=== PATIENT | male | born 1945 | race African-American/Black ===

== ENCOUNTER 2019-01-28 17:22 | Inpatient (IN) | payer MEDICARE ==
[2019-01-28 18:04] LABS: ABS Basophils 0.1 10^3/ul (0-0.2); ABS Eosinophils 0.1 10^3/ul (0-0.6); ABS Lymphocytes 1.6 10^3/ul (1.0-4.8); ABS Monocytes 0.8 10^3/ul (0-0.8); ABS Neutrophils 3.4 10^3/ul (1.5-7.7); Eosinophil % 1.2 %; Hematocrit 48 % (42-52); Hemoglobin 15.5 g/dL (14.0-18.0); Lymphocyte % 27.4 %; Mean Corpuscular HGB Conc 33 g/dL (31-36); Mean Corpuscular Hemoglobin 28 pg (27-31); Mean Corpuscular Volume 86 fL (80-94); Mean Platelet Volume 7.9 fL (7.4-10.4); Platelet Count 268 10^3/uL (150-450); Red Blood Count 5.49 10^6 /uL (4.18-5.48); Red Cell Distribution Width 17 % (10-15); White Blood Count 5.9 10^3/uL (3.5-10.8)
[2019-01-28 18:25] LABS: ALT 9 U/L (7-52); AST 17 U/L (13-39); Albumin 4.1 g/dL (3.2-5.2); Albumin/Globulin Ratio 1.2 (1-3); Alkaline Phosphatase 64 U/L (34-104); Anion Gap 5 mmol/L (2-11); BUN/Creatinine Ratio 11.6 (8-20); Blood Urea Nitrogen 14 mg/dL (6-24); C Reactive Protein 18.29 mg/L (<8.01); CO2 Carbon Dioxide 32 mmol/L (22-32); Calcium 9.2 mg/dL (8.6-10.3); Chloride 102 mmol/L (101-111); EGFR African American 70.5 (>60); EGFR Non-African American 58.3 (>60); Globulin 3.4 g/dL (2-4); Glucose 102 mg/dL (70-100); Potassium 4.6 mmol/L (3.5-5.0); Sodium 139 mmol/L (135-145); Total Protein 7.5 g/dL (6.4-8.9)
[2019-01-28] MEDS ORDERED: NS 0.9% 1000 ML** 1,000 ML IV ONE ×2 (19:26→22:28)
[2019-01-28] MEDS ORDERED: Morphine 4 MG/ML VIAL (1 ml) 4 MG/ML VIAL IV ONE (19:27)
[2019-01-28] MEDS ORDERED: Ondansetron INJ* 2 MG/ML VIAL IV ONE (19:27)
--- NOTE | 2019-01-28 19:27 | ED ---
Abdominal Pain/Male - HPI Summary HPI Summary: Patient presents with intermittent abdominal pain and abdominal distention starting last night. Patient states no bowel movement for 2 days. Denies fever , cough, sore throat, CP, SOB, N/V/D, abdominal pain, change in urine, penile or testicular symptoms. Medical history is A. fib, HTN, bowel obstruction. 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 On Xarelto - History of Current Complaint Chief Complaint: EDConstipation Stated Complaint: ABDOMINAL PAIN PER EMS Time Seen by Provider: 01/28/19 17:34 Hx Obtained From: Patient Onset/Duration: Gradual Onset, Lasting Hours Timing: Intermittent Severity Initially: Mild Severity Currently: Severe Pain Intensity: 8 Pain Scale Used: 0-10 Numeric Location: Diffuse Radiates: No Character: Dull, Cramping Aggravating Factor(s): Nothing Alleviating Factor(s): Nothing Associated Signs And Symptoms: Positive: Constipation, Decreased Appetite - Allergies/Home Medications Allergies/Adverse Reactions: Allergies Allergy/AdvReac Type Severity Reaction Status Date / Time No Known Allergies Allergy Verified 01/28/19 17:32 Home Medications: Home Medications Acetaminophen TAB* [Tylenol TAB*] 650 mg PO DAILY 01/28/19 [History Confirmed ] Digoxin TAB* [Lanoxin TAB*] 125 mg PO DAILY 01/28/19 [History Confirmed 01/28/19 ] Metoprolol Succinate XL TAB* [Toprol XL TAB*] 50 mg PO BEDTIME 01/28/19 [ History Confirmed 01/28/19] Mirtazapine TAB* [Remeron TAB*] 15 mg PO DAILY 01/28/19 [History Confirmed 01/28] Rivaroxaban TAB(*) [Xarelto 20 mg] 20 mg PO DAILY 01/28/19 [History Confirmed ] Senna TAB 8.6 mg* [Senokot 8.6 mg TAB*] 2 tab PO BEDTIME 01/28/19 [History Confirmed 01/28/19] amLODIPine TAB* [Norvasc 5 mg TAB*] 5 mg PO DAILY 01/28/19 [History Confirmed ] traZODone TAB* [Desyrel TAB*] 100 mg PO BEDTIME 01/28/19 [History Confirmed 12/09] PMH/Surg Hx/FS Hx/Imm Hx Endocrine/Hematology History: Reports: Hx Anticoagulant Therapy Cardiovascular History: Denies: Hx Pacemaker/ICD History: Denies: Hx Dialysis Sensory History: Denies: Hx Eye Prosthesis Opthamlomology History: Denies: Hx Legally Blind EENT History: Denies: Hx Deafness Neurological History: Denies: Hx Dementia Infectious Disease History: No Infectious Disease History: Denies: Traveled Outside the [place] in Last 30 Days - Family History Known Family History: Positive: Non-Contributory - Social History Alcohol Use: None Substance Use Type: Reports: None Smoking Status (MU): Never Smoked Tobacco Review of Systems Constitutional: Negative Eyes: Negative ENT: Negative Cardiovascular: Negative Respiratory: Negative Positive: Abdominal Pain Genitourinary: Negative Musculoskeletal: Negative Skin: Negative Neurological: Negative Psychological: Normal All Other Systems Reviewed And Are Negative: Yes Physical Exam Triage Information Reviewed: Yes Vital Signs On Initial Exam: Initial Vitals BP 163/122 01/28/19 17:28 Vital Signs Reviewed: Yes Appearance: Positive: Well-Appearing Skin: Positive: Warm Head/Face: Positive: Normal Head/Face Inspection Eyes: Positive: Normal Neck: Positive: Supple Respiratory/Lung Sounds: Positive: Clear to Auscultation Cardiovascular: Positive: Normal Abdomen Description: Positive: Other: Musculoskeletal: Positive: Normal Neurological: Positive: Normal Psychiatric: Positive: Normal AVPU Assessment: Alert - [place] Coma Scale Best Eye Response: 4 - Spontaneous Best Motor Response: 6 - Obeys Commands Best Verbal Response: 5 - Oriented Coma Scale Total: 15 Diagnostics - Vital Signs Vital Signs Temp Pulse Resp BP Pulse Ox 01/28/19 18:00 71 96 01/28/19 17:31 61 98 01/28/19 17:30 98.2 F 61 16 163/102 98 01/28/19 17:28 163/122 - Laboratory Lab Results: Lab Results 01/28/19 01/28/19 Range/Units 17:57 17:57 WBC 5.9 (3.5-10.8) 10^3/uL RBC 5.49 H (4.18-5.48) 10^6 /uL Hgb 15.5 (14.0-18.0) g/dL Hct 48 (42-52) % MCV 86 (80-94) fL MCH 28 (27-31) pg MCHC 33 (31-36) g/dL RDW 17 H (10-15) % Plt Count 268 (150-450) 10^3/uL MPV 7.9 (7.4-10.4) fL Neut % (Auto) 57.2 % Lymph % (Auto) 27.4 % [place] % (Auto) 13.0 % Eos % (Auto) 1.2 % Baso % (Auto) 1.2 % Absolute Neuts (auto) 3.4 (1.5-7.7) 10^3/ul Absolute Lymphs (auto) 1.6 (1.0-4.8) 10^3/ul Absolute Monos (auto) 0.8 (0-0.8) 10^3/ul Absolute Eos (auto) 0.1 (0-0.6) 10^3/ul Absolute Basos (auto) 0.1 (0-0.2) 10^3/ul Absolute Nucleated RBC 0.0 10^3/ul Nucleated RBC % 0.0 Sodium 139 (135-145) mmol/L Potassium 4.6 (3.5-5.0) mmol/L Chloride 102 (101-111) mmol/L Carbon Dioxide 32 (22-32) mmol/L Anion Gap 5 (2-11) mmol/L BUN 14 (6-24) mg/dL Creatinine 1.21 H (0.67-1.17) mg/dL Est GFR ( Amer) 70.5 (>60) Est GFR (Non-Af Amer) 58.3 (>60) BUN/Creatinine Ratio 11.6 (8-20) Glucose 102 H (70-100) mg/dL Calcium 9.2 (8.6-10.3) mg/dL Total Bilirubin 0.60 (0.2-1.0) mg/dL AST 17 (13-39) U/L ALT 9 (7-52) U/L Alkaline Phosphatase 64 (34-104) U/L C-Reactive Protein 18.29 H (<8.01) mg/L Total Protein 7.5 (6.4-8.9) g/dL Albumin 4.1 (3.2-5.2) g/dL Globulin 3.4 (2-4) g/dL Albumin/Globulin Ratio 1.2 (1-3) Lipase < 10 L (11.0-82.0) U/L Result Diagrams: 01/29/19 06:34 01/29/19 06:34 Lab Statement: Any lab studies that have been ordered have been reviewed, and results considered in the medical decision making process. Abdominal Pain Male Course/Dx - Course Course Of Treatment: Patient presents with intermittent abdominal pain and abdominal distention starting last night. Patient states no bowel movement for 2 days. Denies fever, cough, sore throat, CP, SOB, N/V/D, abdominal pain, change in urine, penile or testicular symptoms. Medical history is A. fib, HTN , bowel obstruction. 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 On Xarelto. Patient intermittently tachycardic. Vital signs otherwise within normal limits. 2 L normal saline administered. Labs within normal limits. Creatinine at patient baseline. EKG atrial flutter with 21 AV block, rate of 120, left axis deviation. No prior EKG on file. CT abdomen and pelvis positive for small bowel obstruction. Discussed patient with surgical migration specialist Dr. Yates who recommended admission, NG tube and stopping Xarelto. Admitted to hospitalist. - Diagnoses Provider Diagnoses: Small bowel obstruction Discharge ED - Sign-Out/Discharge Documenting (check all that apply): Patient Departure Patient Received Moderate/Deep Sedation with Procedure: No - Discharge Plan Condition: Stable Disposition: ADMITTED TO [facility] - Billing Disposition and Condition Condition: STABLE Disposition: Admitted to [facility] - Attestation Statements Provider Attestation: I was available for consult. This patient was seen by the [facility]. The patient was not presented to, seen by, or examined by me. Dave Kirby MD
[2019-01-28] MEDS ORDERED: Iohexol 300* (CONTRAST) 10 ML SDV IV ONE (19:47)
[2019-01-28] MEDS ORDERED: Piperacillin/Tazobac ADVAN(*) 3.375 GM in NS 0.9% 100 ML* 100 ML IVPB ONE (22:30)
[2019-01-28 23:20] LABS: INR 1.37 (0.82-1.09)
[2019-01-28] MEDS: Ondansetron INJ* 2 MG/ML VIAL IV PRN (23:39)
[2019-01-28] MEDS: Morphine 4 MG/ML VIAL (1 ml) 4 MG/ML VIAL IV PRN (23:39)
[2019-01-29 00:01] LABS: Digoxin 0.8 ng/ml (0.8-2.0)
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
[2019-01-29 03:38] LABS: Urine Appearance Clear; Urine Bilirubin Negative (Negative); Urine Blood Negative (Negative); Urine Color Yellow; Urine Glucose Negative (Negative); Urine Ketones Negative (Negative); Urine Nitrite Negative (Negative); Urine Protein Negative (Negative); Urine Specific Gravity > 1.060 (1.010-1.030); Urine Urobilinogen Negative (Negative)
[2019-01-29] MEDS: Ondansetron INJ* 2 MG/ML VIAL IV PRN ×4 (03:43→19:56)
[2019-01-29] MEDS: Morphine 4 MG/ML VIAL (1 ml) 4 MG/ML VIAL IV PRN ×4 (03:43→19:56)
[2019-01-29 07:54] LABS: ABS Eosinophils 0.1 10^3/ul (0-0.6); ABS Lymphocytes 1.5 10^3/ul (1.0-4.8); ABS Monocytes 0.8 10^3/ul (0-0.8); ABS Neutrophils 4.1 10^3/ul (1.5-7.7); Hematocrit 45 % (42-52); Hemoglobin 14.3 g/dL (14.0-18.0); Lymphocyte % 22.3 %; Mean Corpuscular HGB Conc 32 g/dL (31-36); Mean Corpuscular Hemoglobin 28 pg (27-31); Mean Corpuscular Volume 88 fL (80-94); Nucleated Red Blood Cells % 0.1; Platelet Count 255 10^3/uL (150-450); Red Blood Count 5.08 10^6 /uL (4.18-5.48); Red Cell Distribution Width 17 % (10-15); White Blood Count 6.5 10^3/uL (3.5-10.8)
[2019-01-29 08:05] LABS: BUN/Creatinine Ratio 12.6 (8-20); Calcium 8.3 mg/dL (8.6-10.3); EGFR African American 77.9 (>60); EGFR Non-African American 64.4 (>60); Potassium 4.5 mmol/L (3.5-5.0)
[2019-01-29] MEDS: Mirtazapine TAB* 15 MG PO SCH (08:06)
[2019-01-29] MEDS ORDERED: amLODIPine TAB* 5 MG PO SCH (09:00)
[2019-01-29] MEDS ORDERED: Metoprolol Tartrate IV* 1 MG/ML 5 ML VIAL IV ONE (13:43)
[2019-01-29] MEDS ORDERED: Metoprolol Tartrate IV* 1 MG/ML 5 ML VIAL IV PRN (14:24)
[2019-01-29] MEDS: NS 0.9% 1000 ML** 1,000 ML IV SCH (14:30)
--- NOTE | 2019-01-29 15:35 | PN ---
Subjective Date of Service: 01/29/19 Interval History: Dr. Yates evaluated patient this morning and adjusted the position of the NG tube. Since this time, patient has had good output via NG tube, green-brown fluid. He tells me his abdominal pain is minimally improved, but still requiring morphine for pain control. He feels like he is less bloated than yesterday. Nausea continues. Denies vomiting, fever/chills, chest pain, difficulty breathing. Objective Active Medications: Amlodipine Besylate (Norvasc Tab*) 5 mg PO DAILY [facility] Last Admin: 01/29/19 08:06 Dose: 5 mg Sodium Chloride (Ns 0.9% 1000 Ml) 1,000 mls @ 100 mls/hr IV PER RATE [facility] Last Admin: 01/29/19 14:30 Dose: 100 mls/hr Metoprolol Tartrate (Lopressor Iv*) 5 mg IV Q6H PRN PRN Reason: TACHYCARDIA Mirtazapine (Remeron Tab*) 15 mg PO DAILY [facility] Last Admin: 01/29/19 08:06 Dose: 15 mg Morphine Sulfate (Morphine 4 Mg/Ml Vial (1 Ml)) 4 mg IV Q4H PRN PRN Reason: PAIN - SEVERE Last Admin: 01/29/19 12:30 Dose: 4 mg Ondansetron HCl (Zofran Inj*) 4 mg IV Q4H PRN PRN Reason: NAUSEA/VOMITING Last Admin: 01/29/19 12:30 Dose: 4 mg Trazodone HCl (Desyrel Tab*) 100 mg PO BEDTIME [facility] Vital Signs - 8 hr 01/29/19 01/29/19 01/29/19 08:00 08:06 10:09 Temperature Pulse Rate Respiratory 16 16 18 Rate Blood Pressure (mmHg) O2 Sat by Pulse Oximetry 01/29/19 01/29/19 01/29/19 11:15 12:30 13:49 Temperature 97.5 F Pulse Rate 124 Respiratory 16 20 16 Rate Blood Pressure 150/90 (mmHg) O2 Sat by Pulse 92 Oximetry Oxygen Devices in Use Now: None Appearance: Thin, elderly black male, laying in bed, appearing in NAD Eyes: No Scleral Icterus, PERRLA Ears/Nose/Mouth/Throat: Mucous Membranes Moist, - - NG tube in place Neck: NL Appearance and Movements; NL JVP Respiratory: Symmetrical Chest Expansion and Respiratory Effort, Clear to Auscultation Cardiovascular: NL Sounds; No Murmurs; No JVD, RRR Abdominal: - - normoactive BSx4Q; abdomen is minimally distended; minimally tender to palpation throughout; no rigidity Extremities: No Edema, No Clubbing, Cyanosis Skin: No Rash or Ulcers Neurological: Alert and Oriented x 3, NL Muscle Strength and Tone Result Diagrams: 01/29/19 06:34 01/29/19 06:34 Additional Lab and Data: Lab Results 01/28/19 01/28/19 Range/Units 17:57 17:57 WBC 5.9 (3.5-10.8) 10^3/uL RBC 5.49 H (4.18-5.48) 10^6 /uL Hgb 15.5 (14.0-18.0) g/dL Hct 48 (42-52) % MCV 86 (80-94) fL MCH 28 (27-31) pg MCHC 33 (31-36) g/dL RDW 17 H (10-15) % Plt Count 268 (150-450) 10^3/uL MPV 7.9 (7.4-10.4) fL Neut % (Auto) 57.2 % Lymph % (Auto) 27.4 % [place] % (Auto) 13.0 % Eos % (Auto) 1.2 % Baso % (Auto) 1.2 % Absolute Neuts (auto) 3.4 (1.5-7.7) 10^3/ul Absolute Lymphs (auto) 1.6 (1.0-4.8) 10^3/ul Absolute Monos (auto) 0.8 (0-0.8) 10^3/ul Absolute Eos (auto) 0.1 (0-0.6) 10^3/ul Absolute Basos (auto) 0.1 (0-0.2) 10^3/ul Absolute Nucleated RBC 0.0 10^3/ul Nucleated RBC % 0.0 Sodium 139 (135-145) mmol/L Potassium 4.6 (3.5-5.0) mmol/L Chloride 102 (101-111) mmol/L Carbon Dioxide 32 (22-32) mmol/L Anion Gap 5 (2-11) mmol/L BUN 14 (6-24) mg/dL Creatinine 1.21 H (0.67-1.17) mg/dL Est GFR ( Amer) 70.5 (>60) Est GFR (Non-Af Amer) 58.3 (>60) BUN/Creatinine Ratio 11.6 (8-20) Glucose 102 H (70-100) mg/dL Calcium 9.2 (8.6-10.3) mg/dL Total Bilirubin 0.60 (0.2-1.0) mg/dL AST 17 (13-39) U/L ALT 9 (7-52) U/L Alkaline Phosphatase 64 (34-104) U/L C-Reactive Protein 18.29 H (<8.01) mg/L Total Protein 7.5 (6.4-8.9) g/dL Albumin 4.1 (3.2-5.2) g/dL Globulin 3.4 (2-4) g/dL Albumin/Globulin Ratio 1.2 (1-3) Lipase < 10 L (11.0-82.0) U/L Microbiology and Other Data: Microbiology 01/28/19 23:15 Nasal Screen MRSA (PCR) - Final Nasal Mrsa Not Detected Assess/Plan/Problems-Billing Assessment: 74 yo male with PMHx atrial fibrillation on AC, HTN, depression, hx of SBO, prior open abdominal surgery due to bleeding ulcer, s/p splenectomy presents with abdominal pain and nausea, found to have SBO. - Patient Problems (1) SBO (small bowel obstruction) Current Visit: Yes Status: Acute Code(s): K56.609 - UNSP INTESTNL OBST, UNSP TO PARTIAL VERSUS COMPLETE OBST SNOMED Code(s): 934528027 Comment: -SBO confirmed on CT abd/pelvis -NG tube in place, draining green-brown stomach contents -nausea and abdominal pain continues, but minimally improved. Continue prn zofran and morphine -remains NPO with IVF -appreciate general surgery input. Opting for conservative management at this time. Holding home xarelto in case surgery is needed. His last dose was 01/27/19 at 5:30 PM (2) Tachycardia Current Visit: Yes Status: Acute Code(s): R00.0 - TACHYCARDIA, UNSPECIFIED SNOMED Code(s): 4643726 Comment: -appears to be sinus tachycardia on EKG. Appears to have T wave inversions which are consistent with prior EKG from admission -likely rebound tachycardia as patient has not been receiving metoprolol -scheduling IV metoprolol with holding parameters (3) Atrial fibrillation Current Visit: Yes Status: Acute Code(s): I48.91 - UNSPECIFIED ATRIAL FIBRILLATION SNOMED Code(s): 76596397 Comment: -holding home xarelto in case surgery is needed -IV metoprolol -holding digoxin for now. Patient in sinus tachycardia. Will consider IV digoxin if needed (4) HTN (hypertension) Current Visit: Yes Status: Acute Code(s): I10 - ESSENTIAL (PRIMARY) HYPERTENSION SNOMED Code(s): 52119666 Comment: -IV metoprolol -SBP to 150 today -crushed NG amlodipine discontinued as this would be ineffective as NG is to suction (5) Avascular necrosis of femoral head Current Visit: Yes Status: Acute Code(s): M87.059 - IDIOPATHIC ASEPTIC NECROSIS OF UNSPECIFIED FEMUR SNOMED Code(s): 724699119 Comment: -incidentally found on CT abd/pelvis -outpatient follow up (6) DVT prophylaxis Current Visit: Yes Status: Acute Code(s): Z29.9 - ENCOUNTER FOR PROPHYLACTIC MEASURES, UNSPECIFIED SNOMED Code(s): 158961786 Comment: -heparin TID started -SCDs (7) Full code status Current Visit: Yes Status: Acute Code(s): Z78.9 - OTHER SPECIFIED HEALTH STATUS SNOMED Code(s): 659924826 Status and Disposition: Inpatient. Will return to [facility] when medically stable.
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
[2019-01-29] MEDS ORDERED: Metoprolol Tartrate IV* 1 MG/ML 5 ML VIAL IV SCH (18:00)
[2019-01-29] MEDS: Metoprolol Tartrate IV* 1 MG/ML 5 ML VIAL IV SCH (19:04)
[2019-01-29] MEDS ORDERED: Digoxin IV* 0.5 MG/2 ML AMP (0.25 MG/ML) IV SLOW PU ONE (20:53)
--- NOTE | 2019-01-29 20:55 | PN ---
Hospitalist Progress Note Date of Service: 01/29/19 HOSPITALIST ADDENDUM Called by RN because patient is in Aflutter with HR 120. His long acting metoprolol and digoxin were held due to SBO, reason why his rhythm is faster now. Will give IV digoxin and continue to monitor on Telemetry.
[2019-01-29] MEDS: traZODone TAB* 100 MG PO SCH (21:57)
[2019-01-29] MEDS: Heparin VIAL(*) 5000 UNITS/ML VIAL (FIVE THOUSAND) SUBCUT SCH (21:57)
[2019-01-30] MEDS: Morphine 4 MG/ML VIAL (1 ml) 4 MG/ML VIAL IV PRN ×5 (00:39→21:40)
[2019-01-30] MEDS: Ondansetron INJ* 2 MG/ML VIAL IV PRN ×2 (00:39→04:51)
[2019-01-30] MEDS: Metoprolol Tartrate IV* 1 MG/ML 5 ML VIAL IV SCH ×5 (00:39→19:10)
[2019-01-30] MEDS: NS 0.9% 1000 ML** 1,000 ML IV SCH ×2 (02:47→16:59)
[2019-01-30] MEDS: Heparin VIAL(*) 5000 UNITS/ML VIAL (FIVE THOUSAND) SUBCUT SCH ×3 (06:02→21:57)
[2019-01-30] MEDS: Mirtazapine TAB* 15 MG PO SCH (08:30)
--- NOTE | 2019-01-30 12:34 | PN ---
Progress Note - Progress Note Date of Service: 01/30/19 SOAP: Subjective: He feels better today than yesterday but still bloated and no BM. He thinks he had a small amount of flatus. Objective: Vital Signs Temp 98.7 F 01/30/19 11:32 Pulse 121 01/30/19 11:32 Resp 20 01/30/19 11:32 BP 146/91 01/30/19 11:32 Pulse Ox 93 01/30/19 11:32 Gen: NAD Abd: distended; soft; min tender Intake & Output 01/29/19 01/30/19 01/30/19 18:59 06:59 18:59 Intake Total 0 1358 0 Balance 0 1358 0 Intake: IV Fluids 1358 NS (0.9%) 1358 Oral 0 0 0 Other: # Bowel Movements 0 # Voids 0 AXR: improved SB dilation with contrast in colon. Assessment: SBO. Improving with conservative measures. Still no need for urgent surgery. Plan: Cant NGT until bowel function returns. Would continue to hold Xarelto in case he fails to resolve this and needs surgery. Will follow.
--- NOTE | 2019-01-30 16:32 | PN ---
Subjective Date of Service: 01/30/19 Interval History: Overnight, Dr. Nye notified of atrial flutter, started IV digoxin as patient is NPO. Atrial flutter continued this morning with tachycardia. Patient telling me he feels his abdominal pain is improved today, but still present. He denies nausea/vomiting, fever/chills, chest pain, difficulty breathing. NG tube output continues, but at a slower rate. The NG tube output has not been documented and it is unclear if suction container was emptied yesterday and not recorded. Discussed with RN Mari who does not see documentation of this either and will ask at change of shift. Objective Active Medications: Digoxin (Digoxin Iv*) 0.125 mg IV SLOW PU BEDTIME [facility] Heparin Sodium (Porcine) (Heparin Vial(*)) 5,000 units SUBCUT Q8HR [facility] Last Admin: 01/30/19 13:18 Dose: 5,000 units Sodium Chloride (Ns 0.9% 1000 Ml) 1,000 mls @ 100 mls/hr IV PER RATE [facility] Last Admin: 01/30/19 02:47 Dose: 100 mls/hr Metoprolol Tartrate (Lopressor Iv*) 10 mg IV Q6H [facility] Last Admin: 01/30/19 13:16 Dose: 10 mg Mirtazapine (Remeron Tab*) 15 mg PO DAILY [facility] Last Admin: 01/30/19 08:30 Dose: Not Given Morphine Sulfate (Morphine 4 Mg/Ml Vial (1 Ml)) 4 mg IV Q4H PRN PRN Reason: PAIN - SEVERE Last Admin: 01/30/19 11:09 Dose: 4 mg Ondansetron HCl (Zofran Inj*) 4 mg IV Q4H PRN PRN Reason: NAUSEA/VOMITING Last Admin: 01/30/19 04:51 Dose: 4 mg Trazodone HCl (Desyrel Tab*) 100 mg PO BEDTIME [facility] Last Admin: 01/29/19 21:57 Dose: 100 mg Vital Signs - 8 hr 01/30/19 01/30/19 01/30/19 11:09 11:32 13:17 Temperature 98.7 F Pulse Rate 121 Respiratory 18 20 17 Rate Blood Pressure 146/91 (mmHg) O2 Sat by Pulse 93 Oximetry Oxygen Devices in Use Now: None Appearance: Thin, elderly black male, laying supine in bed, appearing in NAD Eyes: No Scleral Icterus, PERRLA Ears/Nose/Mouth/Throat: Mucous Membranes Moist Neck: NL Appearance and Movements; NL JVP Respiratory: Symmetrical Chest Expansion and Respiratory Effort, Clear to Auscultation Cardiovascular: NL Sounds; No Murmurs; No JVD, - - irregular rhythm Abdominal: - - normoactive BS x4 quadrants; minimally distended; nontender throughout Extremities: No Edema, No Clubbing, Cyanosis Skin: No Rash or Ulcers Neurological: Alert and Oriented x 3, NL Muscle Strength and Tone Result Diagrams: 01/29/19 06:34 01/29/19 06:34 Additional Lab and Data: Lab Results 01/28/19 01/28/19 Range/Units 17:57 17:57 WBC 5.9 (3.5-10.8) 10^3/uL RBC 5.49 H (4.18-5.48) 10^6 /uL Hgb 15.5 (14.0-18.0) g/dL Hct 48 (42-52) % MCV 86 (80-94) fL MCH 28 (27-31) pg MCHC 33 (31-36) g/dL RDW 17 H (10-15) % Plt Count 268 (150-450) 10^3/uL MPV 7.9 (7.4-10.4) fL Neut % (Auto) 57.2 % Lymph % (Auto) 27.4 % [place] % (Auto) 13.0 % Eos % (Auto) 1.2 % Baso % (Auto) 1.2 % Absolute Neuts (auto) 3.4 (1.5-7.7) 10^3/ul Absolute Lymphs (auto) 1.6 (1.0-4.8) 10^3/ul Absolute Monos (auto) 0.8 (0-0.8) 10^3/ul Absolute Eos (auto) 0.1 (0-0.6) 10^3/ul Absolute Basos (auto) 0.1 (0-0.2) 10^3/ul Absolute Nucleated RBC 0.0 10^3/ul Nucleated RBC % 0.0 Sodium 139 (135-145) mmol/L Potassium 4.6 (3.5-5.0) mmol/L Chloride 102 (101-111) mmol/L Carbon Dioxide 32 (22-32) mmol/L Anion Gap 5 (2-11) mmol/L BUN 14 (6-24) mg/dL Creatinine 1.21 H (0.67-1.17) mg/dL Est GFR ( Amer) 70.5 (>60) Est GFR (Non-Af Amer) 58.3 (>60) BUN/Creatinine Ratio 11.6 (8-20) Glucose 102 H (70-100) mg/dL Calcium 9.2 (8.6-10.3) mg/dL Total Bilirubin 0.60 (0.2-1.0) mg/dL AST 17 (13-39) U/L ALT 9 (7-52) U/L Alkaline Phosphatase 64 (34-104) U/L C-Reactive Protein 18.29 H (<8.01) mg/L Total Protein 7.5 (6.4-8.9) g/dL Albumin 4.1 (3.2-5.2) g/dL Globulin 3.4 (2-4) g/dL Albumin/Globulin Ratio 1.2 (1-3) Lipase < 10 L (11.0-82.0) U/L Microbiology and Other Data: Microbiology 01/28/19 23:15 Nasal Screen MRSA (PCR) - Final Nasal Mrsa Not Detected Assess/Plan/Problems-Billing Assessment: 74 yo male with PMHx atrial fibrillation on AC, HTN, depression, hx of SBO, prior open abdominal surgery due to bleeding ulcer, s/p splenectomy presents with abdominal pain and nausea, found to have SBO. - Patient Problems (1) SBO (small bowel obstruction) Current Visit: Yes Status: Acute Code(s): K56.609 - UNSP INTESTNL OBST, UNSP TO PARTIAL VERSUS COMPLETE OBST SNOMED Code(s): 547242723 Comment: -SBO confirmed on CT abd/pelvis -NG tube in place, draining green-brown stomach contents. Total volume of output is unclear, will appreciate clarification with nursing -nausea resolved, abd pain minimally improved. Abdominal x-ray today shows some improvement of small bowel dilation. -remains NPO with IVF -appreciate general surgery input. Opting for conservative management at this time. Holding home xarelto in case surgery is needed. His last dose was 01/27/19 at 5:30 PM (2) Tachycardia Current Visit: Yes Status: Acute Code(s): R00.0 - TACHYCARDIA, UNSPECIFIED SNOMED Code(s): 4606171 Comment: -sinus tachycardia converted to atrial flutter with rapid ventricular rate overnight -patient received one dose IV digoxin overnight -this morning still tachycardic despite scheduled IV metoprolol 5mg q8h. Increased to 10 mg q6h. This had good rate control, though atrial fibrillation continues (3) Atrial fibrillation Current Visit: Yes Status: Acute Code(s): I48.91 - UNSPECIFIED ATRIAL FIBRILLATION SNOMED Code(s): 90279432 Comment: -holding home xarelto in case surgery is needed -IV metoprolol as above -starting IV digoxin 125 mcg daily -atrial flutter on telemetry as discussed above (4) HTN (hypertension) Current Visit: Yes Status: Acute Code(s): I10 - ESSENTIAL (PRIMARY) HYPERTENSION SNOMED Code(s): 00476688 Comment: -IV metoprolol -SBP to 140s-150s today (5) Avascular necrosis of femoral head Current Visit: Yes Status: Acute Code(s): M87.059 - IDIOPATHIC ASEPTIC NECROSIS OF UNSPECIFIED FEMUR SNOMED Code(s): 774811058 Comment: -incidentally found on CT abd/pelvis -outpatient follow up (6) DVT prophylaxis Current Visit: Yes Status: Acute Code(s): Z29.9 - ENCOUNTER FOR PROPHYLACTIC MEASURES, UNSPECIFIED SNOMED Code(s): 532503647 Comment: -heparin TID started -SCDs (7) Full code status Current Visit: Yes Status: Acute Code(s): Z78.9 - OTHER SPECIFIED HEALTH STATUS SNOMED Code(s): 107720410 Status and Disposition: Inpatient. Will return to [facility] when medically stable.
[2019-01-30] MEDS: traZODone TAB* 100 MG PO SCH ×2 (21:37→22:02)
[2019-01-30] MEDS: Digoxin IV* 0.5 MG/2 ML AMP (0.25 MG/ML) IV SLOW PU SCH (21:38)
[2019-01-30] MEDS ORDERED: Morphine 4 MG/ML VIAL (1 ml) 4 MG/ML VIAL IM ONE (22:27)
[2019-01-31] MEDS: Metoprolol Tartrate IV* 1 MG/ML 5 ML VIAL IV SCH ×4 (01:56→20:11)
[2019-01-31] MEDS: Heparin VIAL(*) 5000 UNITS/ML VIAL (FIVE THOUSAND) SUBCUT SCH ×3 (06:04→23:00)
[2019-01-31] MEDS: NS 0.9% 1000 ML** 1,000 ML IV SCH (06:04)
[2019-01-31] MEDS: Morphine 4 MG/ML VIAL (1 ml) 4 MG/ML VIAL IV PRN ×2 (07:25→13:40)
--- NOTE | 2019-01-31 08:58 | PN ---
Subjective Date of Service: 01/31/19 Interval History: Patient has had ~100 cc NG output since overnight shift. Still without BM. Patient endorses some flatus. Abdominal pain is minimally improved from yesterday but still present. Denies chest pain, difficulty breathing. Denies nausea. Agreeable to getting out of bed to chair today. IV infiltrated overnight to left arm. IV placed to right arm this morning. Objective Active Medications: Digoxin (Digoxin Iv*) 0.125 mg IV SLOW PU BEDTIME [facility] Last Admin: 01/30/19 21:38 Dose: 0.125 mg Heparin Sodium (Porcine) (Heparin Vial(*)) 5,000 units SUBCUT Q8HR [facility] Last Admin: 01/31/19 06:04 Dose: 5,000 units Sodium Chloride (Ns 0.9% 1000 Ml) 1,000 mls @ 100 mls/hr IV PER RATE [facility] Last Admin: 01/31/19 06:04 Dose: 100 mls/hr Metoprolol Tartrate (Lopressor Iv*) 10 mg IV Q6H [facility] Last Admin: 01/31/19 08:05 Dose: 10 mg Mirtazapine (Remeron Tab*) 15 mg PO DAILY [facility] Last Admin: 01/30/19 08:30 Dose: Not Given Morphine Sulfate (Morphine 4 Mg/Ml Vial (1 Ml)) 4 mg IV Q4H PRN PRN Reason: PAIN - SEVERE Last Admin: 01/31/19 07:25 Dose: 4 mg Ondansetron HCl (Zofran Inj*) 4 mg IV Q4H PRN PRN Reason: NAUSEA/VOMITING Last Admin: 01/30/19 04:51 Dose: 4 mg Trazodone HCl (Desyrel Tab*) 100 mg PO BEDTIME [facility] Last Admin: 01/30/19 22:02 Dose: 100 mg Vital Signs - 8 hr 01/31/19 01/31/19 01/31/19 02:52 03:15 07:15 Temperature 97.8 F 98.7 F Pulse Rate 120 118 Respiratory 18 17 17 Rate Blood Pressure 128/87 145/84 (mmHg) O2 Sat by Pulse 95 97 Oximetry 01/31/19 07:25 Temperature Pulse Rate Respiratory 16 Rate Blood Pressure (mmHg) O2 Sat by Pulse Oximetry Oxygen Devices in Use Now: None Appearance: Thin, elderly black male, laying in bed, appearing in NAD Eyes: No Scleral Icterus, PERRLA Ears/Nose/Mouth/Throat: Mucous Membranes Moist, - - NG tube in place to suction Neck: NL Appearance and Movements; NL JVP Respiratory: Symmetrical Chest Expansion and Respiratory Effort, Clear to Auscultation Cardiovascular: - - tachycardic, regular rate, no murmurs appreciated Abdominal: - - normoactive BS [id number]; abdomen softer today, minimally tender in upper quadrants Extremities: No Clubbing, Cyanosis, - - trace edema to left forearm Skin: No Rash or Ulcers Neurological: Alert and Oriented x 3, NL Muscle Strength and Tone Result Diagrams: 01/29/19 06:34 01/29/19 06:34 Additional Lab and Data: Lab Results 01/28/19 01/28/19 Range/Units 17:57 17:57 WBC 5.9 (3.5-10.8) 10^3/uL RBC 5.49 H (4.18-5.48) 10^6 /uL Hgb 15.5 (14.0-18.0) g/dL Hct 48 (42-52) % MCV 86 (80-94) fL MCH 28 (27-31) pg MCHC 33 (31-36) g/dL RDW 17 H (10-15) % Plt Count 268 (150-450) 10^3/uL MPV 7.9 (7.4-10.4) fL Neut % (Auto) 57.2 % Lymph % (Auto) 27.4 % [place] % (Auto) 13.0 % Eos % (Auto) 1.2 % Baso % (Auto) 1.2 % Absolute Neuts (auto) 3.4 (1.5-7.7) 10^3/ul Absolute Lymphs (auto) 1.6 (1.0-4.8) 10^3/ul Absolute Monos (auto) 0.8 (0-0.8) 10^3/ul Absolute Eos (auto) 0.1 (0-0.6) 10^3/ul Absolute Basos (auto) 0.1 (0-0.2) 10^3/ul Absolute Nucleated RBC 0.0 10^3/ul Nucleated RBC % 0.0 Sodium 139 (135-145) mmol/L Potassium 4.6 (3.5-5.0) mmol/L Chloride 102 (101-111) mmol/L Carbon Dioxide 32 (22-32) mmol/L Anion Gap 5 (2-11) mmol/L BUN 14 (6-24) mg/dL Creatinine 1.21 H (0.67-1.17) mg/dL Est GFR ( Amer) 70.5 (>60) Est GFR (Non-Af Amer) 58.3 (>60) BUN/Creatinine Ratio 11.6 (8-20) Glucose 102 H (70-100) mg/dL Calcium 9.2 (8.6-10.3) mg/dL Total Bilirubin 0.60 (0.2-1.0) mg/dL AST 17 (13-39) U/L ALT 9 (7-52) U/L Alkaline Phosphatase 64 (34-104) U/L C-Reactive Protein 18.29 H (<8.01) mg/L Total Protein 7.5 (6.4-8.9) g/dL Albumin 4.1 (3.2-5.2) g/dL Globulin 3.4 (2-4) g/dL Albumin/Globulin Ratio 1.2 (1-3) Lipase < 10 L (11.0-82.0) U/L Microbiology and Other Data: Microbiology 01/28/19 23:15 Nasal Screen MRSA (PCR) - Final Nasal Mrsa Not Detected Assess/Plan/Problems-Billing Assessment: 74 yo male with PMHx atrial fibrillation on AC, HTN, depression, hx of SBO, prior open abdominal surgery due to bleeding ulcer, s/p splenectomy presents with abdominal pain and nausea, found to have SBO. - Patient Problems (1) SBO (small bowel obstruction) Current Visit: Yes Status: Acute Code(s): K56.609 - UNSP INTESTNL OBST, UNSP TO PARTIAL VERSUS COMPLETE OBST SNOMED Code(s): 748639815 Comment: -SBO confirmed on CT abd/pelvis -NG tube removed and diet advanced to sips of clears per gen surg this afternoon -abd pain continues but is controlled per patient -abdominal x-ray today again shows further improvement -appreciate general surgery input. Opting for conservative management at this time. Holding home xarelto in case surgery is needed. His last dose was 01/27/19 at 5:30 PM (2) Tachycardia Current Visit: Yes Status: Acute Code(s): R00.0 - TACHYCARDIA, UNSPECIFIED SNOMED Code(s): 7606554 Comment: -sinus tachycardia converted to atrial flutter with rapid ventricular rate overnight 01/29 -continue IV digoxin -tachycardia controlled yesterday by increasing dose of scheduled IV metoprolol. Today, one hour after administration patient still tachycardic -ordering one dose IV 5mg diltiazem -increased IV metoprolol dose again, though now patient is able to take sips of clears and will restart po metoprolol succinate (3) Atrial fibrillation Current Visit: Yes Status: Acute Code(s): I48.91 - UNSPECIFIED ATRIAL FIBRILLATION SNOMED Code(s): 00636937 Comment: -holding home xarelto in case surgery is needed -tachycardia as above, with atrial flutter -converting IV metoprolol and digoxin back to home po (4) HTN (hypertension) Current Visit: Yes Status: Acute Code(s): I10 - ESSENTIAL (PRIMARY) HYPERTENSION SNOMED Code(s): 39407243 Comment: -IV metoprolol changed to po for this evening -SBP to 140s-150s today (5) Avascular necrosis of femoral head Current Visit: Yes Status: Acute Code(s): M87.059 - IDIOPATHIC ASEPTIC NECROSIS OF UNSPECIFIED FEMUR SNOMED Code(s): 846295536 Comment: -incidentally found on CT abd/pelvis -outpatient follow up (6) DVT prophylaxis Current Visit: Yes Status: Acute Code(s): Z29.9 - ENCOUNTER FOR PROPHYLACTIC MEASURES, UNSPECIFIED SNOMED Code(s): 394506717 Comment: -heparin TID started -SCDs (7) Full code status Current Visit: Yes Status: Acute Code(s): Z78.9 - OTHER SPECIFIED HEALTH STATUS SNOMED Code(s): 896779493 Status and Disposition: Inpatient. Will return to [facility] when medically stable.
[2019-01-31] MEDS ORDERED: Diltiazem IV push/loading dose 5 MG/ML 5 ML vial (25 mg) IV SLOW PU ONE ×3 (09:05→17:00)
[2019-01-31] MEDS: Mirtazapine TAB* 15 MG PO SCH ×2 (09:43→09:44)
[2019-01-31] MEDS ORDERED: Metoprolol Tartrate IV* 1 MG/ML 5 ML VIAL IV SCH (13:00)
--- NOTE | 2019-01-31 15:29 | PN ---
Progress Note - Progress Note Date of Service: 01/31/19 Note: Surgery Progress: S: Feels better. Passing some flatus, but no BM. Denies Nausea. It appears that he has only had 200 ml NG drainage since 0700 (confirmed w/ nurse). O: Vital Signs - 8 hr 01/31/19 01/31/19 01/31/19 09:20 11:15 13:40 Temperature 97.6 F Pulse Rate 108 Respiratory 18 16 16 Rate Blood Pressure 117/69 (mmHg) O2 Sat by Pulse 97 Oximetry Intake and Output Last 24 Hours 01/29/19 01/30/19 01/31/19 02/01/19 06:59 06:59 06:59 06:59 Intake Total 1999 1358 3919 0 Output Total 300 800 Balance 1700 1358 3119 0 Weight 167 lb 3.2 oz Intake: IV Fluids 1999 1358 3919 NS (0.9%) 1358 3919 Oral 0 0 0 0 Output: NG Tube Drainage Amount 800 Urine 300 Other: Estimated Void Medium Date of Last Bowel unknown Movement # Bowel Movements 0 0 0 0 # Voids 0 0 1 2 Gen: WN male, sitting up in chair; NAD; NG in place, draining light bile-tinged drainage Heart: rapid, irreg Lungs: clear Abd: mild distension? +BS; soft; min RUQ tenderness; remainder is soft, nontender AXR: contrast throughout colon; no sig SB dilation or A/F levels A: SBO, resolving P: d/c NG; start sips of clears. If faustino well, advance as faustino 02/01 and discharge when able.
[2019-01-31 17:00] LABS: Magnesium 2.3 mg/dL (1.9-2.7); Potassium 4.5 mmol/L (3.5-5.0)
[2019-01-31 17:06] LABS: BUN/Creatinine Ratio 14.3 (8-20)
[2019-01-31] MEDS ORDERED: Metoprolol Succinate XL TAB* 50 MG PO SCH (21:00)
[2019-01-31] MEDS: Digoxin IV* 0.5 MG/2 ML AMP (0.25 MG/ML) IV SLOW PU SCH (21:26)
[2019-01-31] MEDS: traZODone TAB* 100 MG PO SCH (21:26)
[2019-02-01] MEDS: Heparin VIAL(*) 5000 UNITS/ML VIAL (FIVE THOUSAND) SUBCUT SCH ×3 (05:52→21:40)
[2019-02-01 05:56] LABS: BUN/Creatinine Ratio 13.1 (8-20); EGFR African American 107.5 (>60); EGFR Non-African American 88.8 (>60); Magnesium 2.2 mg/dL (1.9-2.7); Phosphorus 1.4 mg/dL (2.5-5.0); Potassium 4.3 mmol/L (3.5-5.0)
[2019-02-01 06:20] LABS: Digoxin 1.1 ng/ml (0.8-2.0)
[2019-02-01] MEDS: Morphine 4 MG/ML VIAL (1 ml) 4 MG/ML VIAL IV PRN ×2 (08:51→21:40)
[2019-02-01] MEDS: Mirtazapine TAB* 15 MG PO SCH (08:51)
--- NOTE | 2019-02-01 09:46 | PN ---
Progress Note - Progress Note Date of Service: 02/01/19 SOAP: Subjective: Scant flatus. No BM. Not having N/V. Mild abd pain. Objective: Vital Signs Temp 98.3 F 02/01/19 08:44 Pulse 118 02/01/19 08:44 Resp 16 02/01/19 08:51 BP 118/75 02/01/19 08:44 Pulse Ox 94 02/01/19 08:44 Gen: NAD Abd: less distended with tympany; soft; min tender. Intake & Output 01/31/19 02/01/19 02/01/19 18:59 06:59 18:59 Intake Total 0 0 0 Balance 0 0 0 Intake: Oral 0 0 0 Other: Estimated Void Medium Large # Bowel Movements 0 0 # Voids 2 1 Assessment: Resolving SBO. Plan: No surgery. Clears and slowly advance as tolerated.
[2019-02-01] MEDS ORDERED: Metoprolol Tartrate IV* 1 MG/ML 5 ML VIAL IV PRN (13:00)
[2019-02-01] MEDS: amLODIPine TAB* 5 MG PO SCH (13:59)
[2019-02-01] MEDS ORDERED: SODIUM PHOSPHATE IVPB ONE (14:30)
[2019-02-01] MEDS ORDERED: NS IVPB ONE (14:30)
--- NOTE | 2019-02-01 15:34 | PN ---
Subjective Date of Service: 02/01/19 Interval History: Pt states he feels "so-so" today. He has been eating CL diet, tolerating juice , beef broth without nausea, vomiting. He does note slight abdominal pain. He reports flatus without recent BM. He does admit to SOB, but notes that this is chronic and he has had no change in SOB. No other complaints. Objective Active Medications: Amlodipine Besylate (Norvasc Tab*) 5 mg PO DAILY [facility] Digoxin (Lanoxin Tab*) 0.125 mg PO DAILY@1700 [facility] Heparin Sodium (Porcine) (Heparin Vial(*)) 5,000 units SUBCUT Q8HR [facility] Sodium Phosphate 21 mmole/ (Sodium Chloride) 257 mls @ 42 mls/hr IVPB ONCE ONE Metoprolol Succinate (Toprol Xl Tab*) 50 mg PO BEDTIME [facility] Metoprolol Tartrate (Lopressor Iv*) 5 mg IV Q6H PRN Mirtazapine (Remeron Tab*) 15 mg PO DAILY [facility] Morphine Sulfate (Morphine 4 Mg/Ml Vial (1 Ml)) 4 mg IV Q4H PRN Ondansetron HCl (Zofran Inj*) 4 mg IV Q4H PRN Trazodone HCl (Desyrel Tab*) 100 mg PO BEDTIME [facility] Vital Signs: Temp Pulse Resp BP Pulse Ox 98.9 F 119 16 150/100 95 02/01/19 11:28 02/01/19 11:28 02/01/19 11:28 02/01/19 11:28 02/01/19 11:28 Oxygen Devices in Use Now: None Appearance: Pt sitting up in bed. No acute distress. Eyes: No Scleral Icterus, PERRLA Ears/Nose/Mouth/Throat: NL Teeth, Lips, Gums, Clear Oropharnyx, Mucous Membranes Moist Neck: NL Appearance and Movements; NL JVP, Trachea Midline Respiratory: Symmetrical Chest Expansion and Respiratory Effort, Clear to Auscultation Cardiovascular: NL Sounds; No Murmurs; No JVD, No Edema, - - Tachycardic rate; regular rhythm Abdominal: No Hepatosplenomegaly, - - BS in all quadrants. Abdomen distended. TTP throughout. Extremities: No Edema, No Clubbing, Cyanosis Neurological: Alert and Oriented x 3 Result Diagrams: 01/29/19 06:34 02/01/19 05:15 Additional Lab and Data: Lab Results 01/28/19 01/28/19 Range/Units 17:57 17:57 WBC 5.9 (3.5-10.8) 10^3/uL RBC 5.49 H (4.18-5.48) 10^6 /uL Hgb 15.5 (14.0-18.0) g/dL Hct 48 (42-52) % MCV 86 (80-94) fL MCH 28 (27-31) pg MCHC 33 (31-36) g/dL RDW 17 H (10-15) % Plt Count 268 (150-450) 10^3/uL MPV 7.9 (7.4-10.4) fL Neut % (Auto) 57.2 % Lymph % (Auto) 27.4 % [place] % (Auto) 13.0 % Eos % (Auto) 1.2 % Baso % (Auto) 1.2 % Absolute Neuts (auto) 3.4 (1.5-7.7) 10^3/ul Absolute Lymphs (auto) 1.6 (1.0-4.8) 10^3/ul Absolute Monos (auto) 0.8 (0-0.8) 10^3/ul Absolute Eos (auto) 0.1 (0-0.6) 10^3/ul Absolute Basos (auto) 0.1 (0-0.2) 10^3/ul Absolute Nucleated RBC 0.0 10^3/ul Nucleated RBC % 0.0 Sodium 139 (135-145) mmol/L Potassium 4.6 (3.5-5.0) mmol/L Chloride 102 (101-111) mmol/L Carbon Dioxide 32 (22-32) mmol/L Anion Gap 5 (2-11) mmol/L BUN 14 (6-24) mg/dL Creatinine 1.21 H (0.67-1.17) mg/dL Est GFR ( Amer) 70.5 (>60) Est GFR (Non-Af Amer) 58.3 (>60) BUN/Creatinine Ratio 11.6 (8-20) Glucose 102 H (70-100) mg/dL Calcium 9.2 (8.6-10.3) mg/dL Total Bilirubin 0.60 (0.2-1.0) mg/dL AST 17 (13-39) U/L ALT 9 (7-52) U/L Alkaline Phosphatase 64 (34-104) U/L C-Reactive Protein 18.29 H (<8.01) mg/L Total Protein 7.5 (6.4-8.9) g/dL Albumin 4.1 (3.2-5.2) g/dL Globulin 3.4 (2-4) g/dL Albumin/Globulin Ratio 1.2 (1-3) Lipase < 10 L (11.0-82.0) U/L Microbiology and Other Data: Microbiology 01/28/19 23:15 Nasal Screen MRSA (PCR) - Final Nasal Mrsa Not Detected Assess/Plan/Problems-Billing Assessment: 74 yo male with PMHx atrial fibrillation on AC, HTN, depression, hx of SBO, prior open abdominal surgery due to bleeding ulcer, s/p splenectomy presents with abdominal pain and nausea, found to have SBO. - Patient Problems (1) SBO (small bowel obstruction) Comment: -SBO confirmed on CT abd/pelvis -NG tube removed 01/31 -Sips of clears with advance as tolerated -abd pain continues but is controlled per patient -abdominal x-ray 01/31 shows further improvement -appreciate general surgery input. Opting for conservative management at this time. Holding home xarelto in case surgery is needed, although appears unlikely at this time. His last dose was 01/27/19 at 5:30 PM (2) Tachycardia Comment: -Continued sinus tach without leukocytosis, fever, tachypnea -sinus tachycardia converted to atrial flutter with rapid ventricular rate overnight 01/29; now with sinus tach -Yesterday received IV dilt, IV dig, IV metoprolol, and still with tachycardia -Pt now PO; will continue digoxin PO and increase metoprolol PO from 50 to 75 -Metoprolol 5 IV now (3) Atrial fibrillation Comment: -Holding home xarelto in case of surgery -Sinus tach, as above -Continue PO dig and metoprolol with increase to 75 (previously 50) (4) Avascular necrosis of femoral head Comment: -incidentally found on CT abd/pelvis -outpatient follow up (5) HTN (hypertension) Comment: -SBP to 120-150 today -Continue PO metrolol -Restart amlodipine (6) DVT prophylaxis Comment: -heparin TID -SCDs (7) Full code status Status and Disposition: Inpatient. Will return to [facility] when medically stable.
[2019-02-01] MEDS: Digoxin TAB* 0.125 MG PO SCH (17:50)
[2019-02-01] MEDS: traZODone TAB* 100 MG PO SCH (20:12)
[2019-02-01] MEDS ORDERED: Metoprolol Succinate XL TAB* 25 MG PO SCH (21:00)
[2019-02-02] MEDS ORDERED: Glycerin ADULT SUPP PR ONE (00:06)
[2019-02-02] MEDS ORDERED: Magnesium Hydroxide LIQ* 30 ML UDC PO PRN (00:06)
[2019-02-02] MEDS: Heparin VIAL(*) 5000 UNITS/ML VIAL (FIVE THOUSAND) SUBCUT SCH ×2 (05:56→13:07)
[2019-02-02] MEDS: Morphine 4 MG/ML VIAL (1 ml) 4 MG/ML VIAL IV PRN ×2 (06:00→19:43)
[2019-02-02 06:16] LABS: ABS Basophils 0.1 10^3/ul (0-0.2); ABS Eosinophils 0.1 10^3/ul (0-0.6); ABS Lymphocytes 1.7 10^3/ul (1.0-4.8); ABS Monocytes 1.1 10^3/ul (0-0.8); ABS Neutrophils 3.6 10^3/ul (1.5-7.7); Eosinophil % 1.2 %; Hematocrit 42 % (42-52); Hemoglobin 13.5 g/dL (14.0-18.0); Lymphocyte % 26.3 %; Mean Corpuscular HGB Conc 32 g/dL (31-36); Mean Corpuscular Hemoglobin 28 pg (27-31); Mean Corpuscular Volume 87 fL (80-94); Mean Platelet Volume 8.7 fL (7.4-10.4); Platelet Count 242 10^3/uL (150-450); Red Cell Distribution Width 17 % (10-15); White Blood Count 6.6 10^3/uL (3.5-10.8)
[2019-02-02 06:47] LABS: BUN/Creatinine Ratio 6.8 (8-20); Calcium 8.3 mg/dL (8.6-10.3); EGFR African American 101.9 (>60); EGFR Non-African American 84.2 (>60); Phosphorus 1.7 mg/dL (2.5-5.0); Potassium 3.8 mmol/L (3.5-5.0)
[2019-02-02] MEDS ORDERED: Potassium Phosphate IV* 20 MMOLE in NS 0.9% 250 ML* 250 ML IVPB ONE (08:00)
[2019-02-02] MEDS ORDERED: Iohexol 350* (CONTRAST) 500 ML MDV IV ONE (08:01)
[2019-02-02] MEDS: Mirtazapine TAB* 15 MG PO SCH (08:51)
[2019-02-02] MEDS: amLODIPine TAB* 5 MG PO SCH (08:51)
[2019-02-02] MEDS ORDERED: Bisacodyl SUPP* 10 MG SUPP PR ONE (11:15)
--- NOTE | 2019-02-02 11:21 | PN ---
Progress Note - Progress Note Date of Service: 02/02/19 SOAP: Subjective:passing flatus,less abd pain,no stools,tolerating clears,no n/v [] Objective: Vital Signs Temp 97.6 F 02/02/19 07:30 Pulse 120 02/02/19 07:30 Resp 20 02/02/19 09:09 BP 132/94 02/02/19 07:30 Pulse Ox 99 02/02/19 07:30 Intake & Output 02/01/19 02/02/19 02/02/19 18:59 06:59 18:59 Intake Total 1590 600 Balance 1590 600 Weight 167 lb Intake: IVPB 260 NS (0.9%) 260 Oral 1590 340 Other: Date of Last Bowel unknown Movement # Bowel Movements 0 1 # Voids 1 3 abd:softly distended,hypoactive bs,mild tenderness to palpation of lower quadrants R>L,no guarding or rebound [] Assessment:Hospital day#6,SBO resolving slowly [] Plan:continue clears,Dulcolax suppository today,advance diet slowly until has a stool []
[2019-02-02] MEDS ORDERED: Metoprolol Tartrate IV* 1 MG/ML 5 ML VIAL IV PRN (13:24)
[2019-02-02] MEDS ORDERED: Potassium Chlor TAB* 20 MEQ TAB.ER PO ONE (13:25)
--- NOTE | 2019-02-02 13:26 | PN ---
Subjective Date of Service: 02/02/19 Interval History: Pt c/o intermittent abd pain. He reports no BM as of yet, and has agreed to suppository. He is tolerating clear liquids and has recently eaten broth, yamila without n/v. Pt continues to c/o SOB which is chronic. He has h/o tobacco abuse; he quit appx 20 years ago; prior to that he smoked 1-1.5ppd x30-40 years. Objective Active Medications: Amlodipine Besylate (Norvasc Tab*) 5 mg PO DAILY [facility] Digoxin (Lanoxin Tab*) 0.125 mg PO DAILY@1700 [facility] Heparin Sodium (Porcine) (Heparin Vial(*)) 5,000 units SUBCUT Q8HR [facility] Potassium Phosphate 20 mmole/ (Sodium Chloride) 256.6667 mls @ 41.945 mls/hr IVPB ONCE ONE Magnesium Hydroxide (Milk Of Magnesia Liq*) 30 ml PO Q6H PRN Metoprolol Succinate (Toprol Xl Tab*) 75 mg PO BEDTIME [facility] Metoprolol Tartrate (Lopressor Iv*) 5 mg IV Q6H PRN Mirtazapine (Remeron Tab*) 15 mg PO DAILY [facility] Morphine Sulfate (Morphine 4 Mg/Ml Vial (1 Ml)) 4 mg IV Q4H PRN Ondansetron HCl (Zofran Inj*) 4 mg IV Q4H PRN Trazodone HCl (Desyrel Tab*) 100 mg PO BEDTIME [facility] Vital Signs: Temp Pulse Resp BP Pulse Ox 99.1 F 116 16 133/94 98 02/02/19 11:05 02/02/19 11:05 02/02/19 11:05 02/02/19 11:05 02/02/19 11:05 Oxygen Devices in Use Now: None Appearance: Pt sitting up in bed; in no acute distress. Breathing comfortably; cooperative, appropriate. Eyes: No Scleral Icterus Ears/Nose/Mouth/Throat: NL Teeth, Lips, Gums, Clear Oropharnyx, Mucous Membranes Moist Neck: NL Appearance and Movements; NL JVP, Trachea Midline Respiratory: Symmetrical Chest Expansion and Respiratory Effort, Clear to Auscultation Cardiovascular: NL Sounds; No Murmurs; No JVD, No Edema, - - Sinus tach. Abdominal: - - Abdominal distention; BS hypoactive; soft, mildly TTP Lymphatic: No Auricular Adenopathy Extremities: No Edema Neurological: Alert and Oriented x 3 Result Diagrams: 02/02/19 05:46 02/02/19 05:46 Additional Lab and Data: Lab Results 01/28/19 01/28/19 Range/Units 17:57 17:57 WBC 5.9 (3.5-10.8) 10^3/uL RBC 5.49 H (4.18-5.48) 10^6 /uL Hgb 15.5 (14.0-18.0) g/dL Hct 48 (42-52) % MCV 86 (80-94) fL MCH 28 (27-31) pg MCHC 33 (31-36) g/dL RDW 17 H (10-15) % Plt Count 268 (150-450) 10^3/uL MPV 7.9 (7.4-10.4) fL Neut % (Auto) 57.2 % Lymph % (Auto) 27.4 % [place] % (Auto) 13.0 % Eos % (Auto) 1.2 % Baso % (Auto) 1.2 % Absolute Neuts (auto) 3.4 (1.5-7.7) 10^3/ul Absolute Lymphs (auto) 1.6 (1.0-4.8) 10^3/ul Absolute Monos (auto) 0.8 (0-0.8) 10^3/ul Absolute Eos (auto) 0.1 (0-0.6) 10^3/ul Absolute Basos (auto) 0.1 (0-0.2) 10^3/ul Absolute Nucleated RBC 0.0 10^3/ul Nucleated RBC % 0.0 Sodium 139 (135-145) mmol/L Potassium 4.6 (3.5-5.0) mmol/L Chloride 102 (101-111) mmol/L Carbon Dioxide 32 (22-32) mmol/L Anion Gap 5 (2-11) mmol/L BUN 14 (6-24) mg/dL Creatinine 1.21 H (0.67-1.17) mg/dL Est GFR ( Amer) 70.5 (>60) Est GFR (Non-Af Amer) 58.3 (>60) BUN/Creatinine Ratio 11.6 (8-20) Glucose 102 H (70-100) mg/dL Calcium 9.2 (8.6-10.3) mg/dL Total Bilirubin 0.60 (0.2-1.0) mg/dL AST 17 (13-39) U/L ALT 9 (7-52) U/L Alkaline Phosphatase 64 (34-104) U/L C-Reactive Protein 18.29 H (<8.01) mg/L Total Protein 7.5 (6.4-8.9) g/dL Albumin 4.1 (3.2-5.2) g/dL Globulin 3.4 (2-4) g/dL Albumin/Globulin Ratio 1.2 (1-3) Lipase < 10 L (11.0-82.0) U/L Microbiology and Other Data: Microbiology 01/28/19 23:15 Nasal Screen MRSA (PCR) - Final Nasal Mrsa Not Detected Assess/Plan/Problems-Billing Assessment: 74 yo male with PMHx atrial fibrillation on AC, HTN, depression, hx of SBO, prior open abdominal surgery due to bleeding ulcer, s/p splenectomy presents with abdominal pain and nausea, found to have SBO. - Patient Problems (1) SBO (small bowel obstruction) Comment: -SBO confirmed on CT abd/pelvis -NG tube removed 01/31 -Diet continues to advance without n/v -Intermittent abd pain that is controlled -Abdominal x-ray 01/31 shows further improvement -Appreciate general surgery input. Opting for conservative management at this time -Dulcolax suppository ordered for now (2) Tachycardia Comment: -Continued sinus tach without leukocytosis, fever, tachypnea -Sinus tachycardia converted to atrial flutter with rapid ventricular rate overnight 01/29; now with sinus tach consistently on tele -CTA chest negative for PE; electrolytes WNL -TSH, free T4 ordered -Received IV dilt, IV dig, IV metoprolol 01/31, and still with tachycardia -Restarted PO medication 02/01 ; continue digoxin PO and metoprolol 75 ( increased from 50mg on 02/01) -Metoprolol 5 IV prn HR >110 (3) Pulmonary nodule Comment: -1.0 x 0.6cm pulmonary nodule noted on CTA chest -Pt states that he has knowledge of this -Records for previous CT images and report have been requested -If unable to compare old imaging, will need outpatient PET scan (4) Atrial fibrillation Comment: -Restart xarelto -Sinus tach, as above -Continue PO dig and metoprolol (5) Avascular necrosis of femoral head Comment: -incidentally found on CT abd/pelvis -outpatient follow up (6) HTN (hypertension) Comment: -SBP to 126-133 today -Continue PO metrolol and amlodipine (7) DVT prophylaxis Comment: -D/c heparin -Restart xarelto (8) Full code status Status and Disposition: Inpatient. Will return to [facility] [place] when medically stable.
[2019-02-02 14:01] LABS: TSH (Thyroid Stimulating Horm) 33.77 mcIU/mL (0.34-5.60)
[2019-02-02] MEDS ORDERED: Diltiazem IV push/loading dose 5 MG/ML 5 ML vial (25 mg) IV SLOW PU ONE (15:00)
[2019-02-02] MEDS ORDERED: Metoprolol Succinate XL TAB* 25 MG PO SCH (16:00)
[2019-02-02] MEDS ORDERED: Rivaroxaban TAB(*) 20 MG TAB PO SCH (17:00)
[2019-02-02 17:09] LABS: Free T4 1.18 ng/dL (0.61-1.12)
[2019-02-02] MEDS: Digoxin TAB* 0.125 MG PO SCH (19:42)
[2019-02-02] MEDS: traZODone TAB* 100 MG PO SCH (21:49)
[2019-02-03 05:45] LABS: Calcium 8.2 mg/dL (8.6-10.3); Magnesium 2.2 mg/dL (1.9-2.7); Potassium 4.2 mmol/L (3.5-5.0)
[2019-02-03 05:50] LABS: BUN/Creatinine Ratio 4.7 (8-20); EGFR Non-African American 87.6 (>60); Phosphorus 1.6 mg/dL (2.5-5.0)
[2019-02-03] MEDS: amLODIPine TAB* 5 MG PO SCH (09:15)
[2019-02-03] MEDS: Mirtazapine TAB* 15 MG PO SCH ×2 (09:15→10:16)
[2019-02-03] MEDS ORDERED: Acetaminophen TAB* 325 MG PO PRN (09:32)
--- NOTE | 2019-02-03 11:31 | PN ---
Subjective Date of Service: 02/03/19 Interval History: Mr. Benavides reports that he is feeling well. He is tolerating oral intake without nausea or abdominal pain. He had another bowel movement this morning. He denies other complaint and is happy with the plan for discharge. Objective Active Medications: Acetaminophen (Tylenol Tab*) 650 mg PO Q6H PRN Amlodipine Besylate (Norvasc Tab*) 5 mg PO DAILY [facility] Digoxin (Lanoxin Tab*) 0.125 mg PO DAILY@1700 [facility] Magnesium Hydroxide (Milk Of Magnesia Liq*) 30 ml PO Q6H PRN Metoprolol Succinate (Toprol Xl Tab*) 75 mg PO BEDTIME [facility] Metoprolol Tartrate (Lopressor Iv*) 5 mg IV Q4H PRN Mirtazapine (Remeron Tab*) 15 mg PO DAILY [facility] Morphine Sulfate (Morphine 4 Mg/Ml Vial (1 Ml)) 4 mg IV Q4H PRN Ondansetron HCl (Zofran Inj*) 4 mg IV Q4H PRN Rivaroxaban (Xarelto(*)) 20 mg PO 1700 [facility] Trazodone HCl (Desyrel Tab*) 100 mg PO BEDTIME [facility] Vital Signs: Temp Pulse Resp BP Pulse Ox 98.1 F 75 16 107/70 93 02/03/19 07:27 02/03/19 07:27 02/03/19 07:27 02/03/19 07:27 02/03/19 07:27 Oxygen Devices in Use Now: None Appearance: Male lying in bed in NAD Eyes: No Scleral Icterus Ears/Nose/Mouth/Throat: Mucous Membranes Moist Neck: Trachea Midline Respiratory: Symmetrical Chest Expansion and Respiratory Effort, Clear to Auscultation Cardiovascular: NL Sounds; No Murmurs; No JVD, No Edema Abdominal: NL Sounds; No Tenderness; No Distention Extremities: No Edema Skin: No Rash or Ulcers Neurological: Alert and Oriented x 3 Nutrition: Taking PO's Result Diagrams: 02/02/19 05:46 02/03/19 04:49 Additional Lab and Data: . Microbiology and Other Data: . Assess/Plan/Problems-Billing Assessment: 74 yo male with PMHx atrial fibrillation on AC, HTN, depression, hx of SBO, prior open abdominal surgery due to bleeding ulcer, s/p splenectomy presents with abdominal pain and nausea, found to have SBO. - Patient Problems (1) SBO (small bowel obstruction) Comment: - Resolved. - SBO confirmed on CT abd/pelvis. Abdominal x-ray 01/31 showed improvement, NG tube removed - Appreciate general surgery input - medical management (2) Tachycardia Comment: - Continued sinus tach without leukocytosis, fever, tachypnea - Sinus tachycardia converted to atrial flutter with rapid ventricular rate overnight 01/29; now with sinus tach consistently on tele - CTA chest negative for PE; electrolytes WNL - TSH High but free T4 High - Received IV dilt, IV dig, IV metoprolol 01/31, and still with tachycardia - Restarted PO medication 02/01 ; continue digoxin PO and metoprolol (increased dose) (3) Atrial fibrillation Comment: - Restart xarelto - Sinus tach, as above - Continue PO dig and metoprolol (4) HTN (hypertension) Comment: - SBP well controlled - Continue PO metrolol and amlodipine (5) Pulmonary nodule Comment: - 1.0 x 0.6cm pulmonary nodule noted on CTA chest - Pt states that he has knowledge of this - Records for previous CT images and report have been requested - Recommend follow up outpatient PCP (6) Avascular necrosis of femoral head Comment: -incidentally found on CT abd/pelvis -outpatient follow up (7) DVT prophylaxis Comment: - Xarelto (8) Full code status Comment: Status and Disposition: Inpatient. Discharge to [facility].
[2019-02-03 12:43] VITALS: BP 107/62
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
== END 2019-02-03 15:50 | DRG 389 ==
LOC: ED 17:22 → MED 22:56
PROVIDERS: ADMIT Internal Medicine; ATTEND Internal Medicine
PROC: 0D9670Z Drainage of Stomach with Drainage Device, Via Natural or Artificial Opening (ICD-10-PCS; principal; 2019-01-28)
DX: K56.50 Intestinal adhesions [bands], unspecified as to partial versus complete obstruction (principal); I48.92 Unspecified atrial flutter; M87.9 Osteonecrosis, unspecified; I48.91 Unspecified atrial fibrillation; I10 Essential (primary) hypertension; F32.9 Major depressive disorder, single episode, unspecified; K44.9 Diaphragmatic hernia without obstruction or gangrene; R00.0 Tachycardia, unspecified; R91.8 Other nonspecific abnormal finding of lung field; M19.90 Unspecified osteoarthritis, unspecified site; R91.1 Solitary pulmonary nodule; Z79.01 Long term (current) use of anticoagulants; Z79.1 Long term (current) use of non-steroidal anti-inflammatories (NSAID); Z79.899 Other long term (current) drug therapy; Z87.891 Personal history of nicotine dependence
CPT/HCPCS: 36415; 71045; 71275; 74018; 74019; 74177; 80048; 80053; 80162; 81003; 83605; 83690; 83735; 84100; 84439; 84443; 85025; 85610; 86140; 87641; 93005; 99285; A9270-GY; J1160; J1644; J2270; J2405; J2543; J3490; Q9967